=== PATIENT | female | born 1970 | race Caucasian/White ===

== ENCOUNTER 2021-03-31 10:51 | Emergency (ER) | payer MEDICAID, SELFPAY ==
--- NOTE | ~2021-03-31 | XR_ITS ---
EXAMINATION: XR elbow LT min 3V DATE: 03/31/2021 13:09 INDICATION: Left elbow injury and pain. TECHNIQUE: 4 views of left elbow were obtained. COMPARISON: None. FINDINGS: Bone alignment is normal. There is a nondisplaced fracture of the junction of radial head a nd neck. Joint spaces are normal. There is a large elbow joint effusion. IMPRESSION: 1. Nondisplaced fracture of the junction of radial head and neck. 2. Large elbow joint effusion. Reviewed, dictated and finalized at location B.
[2021-03-31 11:11] VITALS: BP 113/63; PULSE 66; RESP 18; TEMP 36.7; O2SAT 100
[2021-03-31 13:18] VITALS: BP 111/55; PULSE 58; TEMP 36.8; O2SAT 100
--- NOTE | 2021-03-31 13:44 | ED.UPPEXIN ---
HPI - Extremity Injury (Upper) General Chief Complaint: Extremity Injury, Upper Stated Complaint: left elbow pain Time Seen by Provider: 03/31/21 12:15 Source: patient Mode of arrival: ambulatory Limitations: no limitations History of Present Illness HPI narrative: 50-year-old female Basically healthy Yesterday she tripped over a hose and landed on her right knee and her left arm She has pain and swelling and decreased range of motion of the left elbow No numbness or weakness Did not hit her head or back no loss of consciousness no neck pain Related Data Allergies Allergy/AdvReac Type Severity Reaction Status Date / Time ANESTHESIA Allergy Intermediate BURNING Uncoded 12/26/18 19:47 PAIN Wasp Allergy Unknown Anaphylactic Uncoded 12/26/18 19:47 Shock Review of Systems Review of Systems: All systems reviewed & are unremarkable except as noted in HPI and below Constitutional: Constitutional: Reports no additional constitutional complaints, Denies chills, Denies fever(s) and Denies headache(s) Eyes: Eyes: Reports no additional eye complaints and Denies change in vision ENT: Denies headache(s) Cardiovascular: Cardiovascular: Denies dyspnea Respiratory: Respiratory: Denies dyspnea Genitourinary: Genitourinary: Denies urinary frequency Musculoskeletal: Musculoskeletal: Denies back pain, Denies deformity, Reports arthralgias, Reports joint swelling and Denies numbness Integumentary/Breasts: Skin/Breast: Reports rash and Denies wounds Neurologic: Denies dizziness, Denies syncope and Denies numbness Exam Const: General: cooperative, no acute distress and alert Orientation/consciousness: patient oriented x3 (alert) HENMT: Head: normal to inspection, normocephalic, atraumatic, no contusions and no hematomas Ears: external ears normal General nose exam: no epistaxis Eyes: Conjunctivae: conjunctivae normal EOM: EOMs intact bilaterally Neck: Neck: normal visual inspection, supple and no JVD Resp: Effort & Inspection: normal respiratory effort and not labored Auscultation: other (BS =) Skin: General skin exam: normal color and no rashes or lesions noted Neuro: General: patient oriented x3 (alert) and moves all extremities Speech: normal speech Extrem: Other: Right knee has an abrasion but full range of motion and no deformity Left elbow has swelling, tenderness over the radial head, decreased supination and pronation Intact distal neurovascular Psych: Affect: normal affect Course Vital Signs Vital signs: Vital Signs Temperature 36.7 C 03/31/21 11:11 Pulse Rate 66 03/31/21 11:11 Respiratory Rate 18 03/31/21 11:11 Blood Pressure 113/63 03/31/21 11:11 Pulse Oximetry 100 03/31/21 11:11 Temperature 36.8 C 03/31/21 13:18 Pulse Rate 58 L 03/31/21 13:18 Respiratory Rate 18 03/31/21 11:11 Blood Pressure 111/55 L 03/31/21 13:18 Pulse Oximetry 100 03/31/21 13:18 MDM - Extremity Injury (Upper) Imaging Data Radiologist's impression: ITS Impressions Elbow X-Ray 03/31/21 13:10 IMPRESSION: 1. Nondisplaced fracture of the junction of radial head and neck. 2. Large elbow joint effusion. Discharge Plan Discharge Clinical Impression: Fracture of head of left radius Patient Disposition: Home, Self-Care Condition: Stable Instructions: How to Use a Sling (ED), Elbow Fracture (ED) Prescriptions: New hydrocodone-acetaminophen 5-325 mg tablet 1 tablet PO Q6H PRN (Reason: pain) Qty: 14 RF: 0 Follow-up/Referrals: Osmin Zambrano MD [Physician] - (Orthopedics, next week)
[2021-03-31 14:04] VITALS: BP 118/69; PULSE 78; RESP 15; O2SAT 97
== END 2021-03-31 14:06 | disposition home or self-care (01) ==
PROVIDERS: Emergency Provider Emergency Medicine
DX: S52.122A Displaced fracture of head of left radius, initial encounter for closed fracture (principal); W18.09XA Striking against other object with subsequent fall, initial encounter
CPT/HCPCS: 73080; 99284; A4565